=== PATIENT | female | born 1955 | race African-American/Black ===

== ENCOUNTER 2019-06-09 23:16 | Inpatient (IN) | payer MEDICARE, MEDICAID ==
[~2019-06-09] VITALS: Ht 160 cm; Wt 68.0 kg
[2019-06-09] MEDS ORDERED: SODIUM CHLORIDE 0.9% 1,000 ML IV ONE (23:34)
[2019-06-09] MEDS ORDERED: NALOXONE HCL 1 MG/ML 2ML VIAL ONE (23:38)
[2019-06-09] MEDS ORDERED: NALOXONE HCL 1 MG/ML 2ML VIAL IV ONE (23:45)
[2019-06-10 00:03] LABS: BASOPHILS % 0.8 % (0.0-2.0); EOSINOPHILS % 0.4 % (0.0-5.0); HEMATOCRIT. 37.2 % (36.0-48.0); HEMOGLOBIN. 12.3 g/dL (12.0-16.0); LYMPHOCYTES % 37.6 % (20.0-50.0); MEAN CORPUSCULAR HEMOGLOBIN 30.6 pg (28.0-32.0); MEAN CORPUSCULAR VOLUME 92.2 fL (81.0-99.0); MEAN PLATELET VOLUME 7.1 fl (7.4-10.4); NEUTROPHILS % 52.2 % (40.0-76.0); PLATELET 292 x1000/uL (130-400); RED BLOOD CELL COUNT 4.03 mill/uL (4.2-5.4); RED CELL DISTRIBUTION WIDTH 15.4 % (11.6-14.6)
[2019-06-10 00:10] LABS: CHLORIDE 109 mEq/L (98-107)
[2019-06-10 00:14] LABS: ETHANOL BLOOD < 10 mg/dL
[2019-06-10 00:20] LABS: CREATINE KINASE 73 IU/L (26-192)
[2019-06-10 00:22] LABS: CLARITY URINE CLEAR (CLEAR); COLOR URINE YELLOW (YELLOW); KETONES URINE TRACE (NEGATIVE); LEUKOCYTE ESTERASE URINE 1+ (NEGATIVE); NITRITE URINE POSITIVE (NEGATIVE); OCCULT BLOOD URINE NEGATIVE (NEGATIVE); PROTEIN URINE NEGATIVE (NEGATIVE); UROBILINOGEN URINE 0.2 E.U./dL (0.2-1.0)
[2019-06-10 00:59] LABS: *AMPHETAMINES SCREEN URINE NEGATIVE (NEGATIVE); *BARBITURATES SCREEN URINE NEGATIVE (NEGATIVE); *BENZODIAZEPINES SCREEN URINE PRESUMTIVE POSITIVE (NEGATIVE); METHADONE URINE SCREEN NEGATIVE (NEGATIVE); OPIATES URINE SCREEN PRESUMTIVE POSITIVE (NEGATIVE)
[2019-06-10 01:01] LABS: *COCAINE SCREEN URINE NEGATIVE (NEGATIVE); CANNABINOID URINE SCREEN NEGATIVE (NEGATIVE); PHENCYCLIDINE URINE SCREEN NEGATIVE (NEGATIVE)
[2019-06-10] MEDS ORDERED: CEFTRIAXONE 1 G PREMIX 50 ML IV SCH (02:00)
[2019-06-10] MEDS ORDERED: ACETAMINOPHEN 325MG TABLET PO PRN (07:00)
[2019-06-10] MEDS ORDERED: CLONIDINE 0.1MG TABLET PO PRN (07:00)
[2019-06-10] MEDS ORDERED: ONDANSETRON HCL 4MG/2ML INJ IV PRN (07:00)
[2019-06-10] MEDS ORDERED: DOCUSATE SODIUM 100MG CAPSULE PO PRN (07:00)
[2019-06-10] MEDS ORDERED: LEVOFLOXACIN 500MG PREMIX 100 ML IV NR (10:00)
[2019-06-10] MEDS: DEXT 5%/0.45% NACL KCL 10MEQ/L 1,000 ML IV SCH (10:13)
[2019-06-10] MEDS: METOPROLOL TARTRATE 25MG TABLET PO SCH ×2 (10:13→18:07)
[2019-06-11] MEDS ORDERED: LEVOFLOXACIN 500MG PREMIX 100 ML IV SCH ×2 (07:00→10:00)
[2019-06-11 08:40] LABS: BASOPHILS % 0.4 % (0.0-2.0); EOSINOPHILS % 0.6 % (0.0-5.0); HEMATOCRIT. 38.1 % (36.0-48.0); HEMOGLOBIN. 12.5 g/dL (12.0-16.0); LYMPHOCYTES % 42.8 % (20.0-50.0); MEAN CORPUSCULAR HEMOGLOBIN 30.4 pg (28.0-32.0); MEAN CORPUSCULAR VOLUME 92.5 fL (81.0-99.0); MEAN PLATELET VOLUME 7.6 fl (7.4-10.4); MONOCYTES % 8.7 % (2.0-8.0); NEUTROPHILS % 47.5 % (40.0-76.0); PLATELET 277 x1000/uL (130-400); RED BLOOD CELL COUNT 4.12 mill/uL (4.2-5.4); RED CELL DISTRIBUTION WIDTH 15.7 % (11.6-14.6)
[2019-06-11 08:42] LABS: CHLORIDE 110 mEq/L (98-107)
[2019-06-11] MEDS: METOPROLOL TARTRATE 25MG TABLET PO SCH ×2 (08:54→16:47)
[2019-06-11 12:00] VITALS: BP 149/74
[2019-06-11] MEDS: DEXT 5%/0.45% NACL KCL 10MEQ/L 1,000 ML IV SCH (12:40)
[2019-06-11] MEDS ORDERED: ALPR1TAB2 PO (12:44)
[2019-06-11] MEDS ORDERED: ZOLP10TA2 MT (12:44)
[2019-06-11] MEDS ORDERED: TRAM50TA3 MT (12:44)
[2019-06-11] MEDS ORDERED: GABA-529 MT (12:44)
[2019-06-11] MEDS ORDERED: SUCR1TAB30 PO (12:44)
[2019-06-11] MEDS ORDERED: LEVE1000 MT (12:44)
[2019-06-11 12:46] VITALS: BP 149/74
[2019-06-11] MEDS ORDERED: ALPRAZOLAM 0.5 MG TABLET PO PRN (13:30)
[2019-06-11 16:00] VITALS: BP 147/75
[2019-06-11] MEDS: GABAPENTIN 300MG CAPSULE PO SCH ×2 (16:47→20:41)
[2019-06-11] MEDS: SUCRALFATE 1G TABLET PO SCH ×2 (16:48→20:40)
[2019-06-11] MEDS: MAGNESIUM/ALUMINUM HYDROXIDE/SIMETHICONE 30ML UDC PO PRN (16:48)
[2019-06-11] MEDS ORDERED: POTASSIUM CHLORIDE 20MEQ TABLET SR PO NR (17:45)
[2019-06-11 20:00] VITALS: BP 139/64
[2019-06-11] MEDS: LEVETIRACETAM 500MG TABLET PO SCH (20:41)
[2019-06-11] MEDS: TRAMADOL 50MG TABLET PO PRN (22:16)
[2019-06-11] MEDS: ZOLPIDEM TARTRATE 5MG TABLET PO PRN (23:10)
[2019-06-12 04:00] VITALS: BP 134/65
[2019-06-12] MEDS: TRAMADOL 50MG TABLET PO PRN ×3 (05:50→21:12)
[2019-06-12] MEDS: SUCRALFATE 1G TABLET PO SCH ×4 (06:20→21:05)
[2019-06-12 06:37] LABS: BASOPHILS % 0.5 % (0.0-2.0); EOSINOPHILS % 0.7 % (0.0-5.0); HEMOGLOBIN. 11.9 g/dL (12.0-16.0); LYMPHOCYTES % 53.6 % (20.0-50.0); MEAN CORPUSCULAR HEMOGLOBIN 30.2 pg (28.0-32.0); MEAN CORPUSCULAR VOLUME 91.3 fL (81.0-99.0); MEAN PLATELET VOLUME 7.6 fl (7.4-10.4); MONOCYTES % 9.8 % (2.0-8.0); NEUTROPHILS % 35.4 % (40.0-76.0); PLATELET 292 x1000/uL (130-400); RED BLOOD CELL COUNT 3.94 mill/uL (4.2-5.4); RED CELL DISTRIBUTION WIDTH 15.2 % (11.6-14.6)
[2019-06-12 07:03] LABS: CHLORIDE 111 mEq/L (98-107)
[2019-06-12 08:00] VITALS: BP 140/76
[2019-06-12] MEDS: GABAPENTIN 300MG CAPSULE PO SCH ×4 (08:42→21:05)
[2019-06-12] MEDS: LEVETIRACETAM 500MG TABLET PO SCH ×2 (08:42→21:05)
[2019-06-12] MEDS: METOPROLOL TARTRATE 25MG TABLET PO SCH ×2 (08:42→16:35)
[2019-06-12] MEDS ORDERED: POTASSIUM CHLORIDE 20MEQ TABLET SR PO NR (09:45)
[2019-06-12] MEDS: LEVOFLOXACIN 500MG PREMIX 100 ML IV SCH (10:47)
[2019-06-12 12:00] VITALS: BP 141/71
[2019-06-12 16:00] VITALS: BP 115/71
[2019-06-12 20:00] VITALS: BP 140/74
[2019-06-12] MEDS: MAGNESIUM/ALUMINUM HYDROXIDE/SIMETHICONE 30ML UDC PO PRN (21:05)
[2019-06-12] MEDS: ZOLPIDEM TARTRATE 5MG TABLET PO PRN (23:40)
[2019-06-13] VITALS: BP 127/64
[2019-06-13 04:00] VITALS: BP 144/60
[2019-06-13] MEDS: SUCRALFATE 1G TABLET PO SCH ×2 (06:33→12:31)
[2019-06-13] MEDS: LEVETIRACETAM 500MG TABLET PO SCH (09:09)
[2019-06-13] MEDS: METOPROLOL TARTRATE 25MG TABLET PO SCH (09:09)
[2019-06-13] MEDS: GABAPENTIN 300MG CAPSULE PO SCH ×2 (09:10→12:31)
[2019-06-13] MEDS: LEVOFLOXACIN 500MG PREMIX 100 ML IV SCH (12:30)
[2019-06-13] MEDS: TRAMADOL 50MG TABLET PO PRN (13:21)
[2019-06-13 13:40] VITALS: BP 126/74
== END 2019-06-13 15:45 | disposition home or self-care (01) | DRG 689 ==
LOC: EDBD 23:16 → ER 23:16 → 6EST 06-10 02:45 → EDBEDREQTM 06-10 02:53 → EDBEDREQ 06-10 02:53 → CANBEDREQ 06-10 11:56 → EDBEDREQSVC 06-10 15:30 → ENRESERV 06-11 04:32 → CANRESERV 06-11 04:32 → ENRESERV 06-11 11:44 → ER 06-11 12:06
PROVIDERS: ADMIT Hospitalist; ATTEND Hospitalist
DX: N39.0 Urinary tract infection, site not specified (principal); G92 Toxic encephalopathy; E05.90 Thyrotoxicosis, unspecified without thyrotoxic crisis or storm; B96.89 Other specified bacterial agents as the cause of diseases classified elsewhere; Z59.0 Homelessness
CPT/HCPCS: 36415; 71045; 80053; 80305; 80307; 80320; 80329; 81003; 82140; 82550; 82962; 83735; 84443; 85025; 87077; 87186; 93970; 96361; 96365; 96367; 96368; 96375; 99285; J1956; J2310; J7030; G0480